=== PATIENT | male | born 2000 | race African-American/Black ===

== ENCOUNTER 2019-06-23 14:38 | Emergency (ER) | payer OTHER ==
[~2019-06-23] VITALS: Ht 167.6 cm; Wt 65.5 kg
[2019-06-23 14:39] VITALS: BP 153/88
[2019-06-23 16:39] LABS: CHLAMYDIA DNA AMPLIFICATION NEGATIVE (NEGATIVE); GC DNA AMPLIFICATION NEGATIVE (NEGATIVE)
[2019-06-23] MEDS ORDERED: AZIT1POW4 PO (18:16)
== END 2019-06-23 15:33 | disposition home or self-care (01) ==
LOC: M ED 14:38
DX: Z11.3 Encounter for screening for infections with a predominantly sexual mode of transmission (principal)

== ENCOUNTER 2019-07-23 19:44 | Emergency (ER) | payer OTHER ==
[~2019-07-23] VITALS: Ht 175.3 cm; Wt 65.9 kg
[~2019-07-23 19:44] MED LIST: AZIT1POW4 PO
[2019-07-23] MEDS ORDERED: NS 1,000 ML IV ONE (20:00)
[2019-07-23 20:27] LABS: BASO # 0.1 10^3/uL (0.0-0.2); BASO % 1.2 % (0.0-1.0); EOS # 0.1 10^3/uL (0.0-0.5); EOS % 1.4 % (0.0-3.0); HEMATOCRIT 48.9 % (42.0-52.0); HEMOGLOBIN 15.4 g/dl (13.5-17.5); LYMPH # 2.3 10^3/uL (1.5-5.0); LYMPH % 34.6 % (24.0-44.0); MEAN CORPUSCULAR HEMOGLOBIN 27.5 pg (27.0-33.0); MEAN CORPUSCULAR HGB CONC 31.5 g/dl (32.0-36.5); MEAN CORPUSCULAR VOLUME 87.3 fl (80.0-96.0); MONO # 0.5 10^3/uL (0.0-0.8); MONO % 7.8 % (0.0-5.0); NEUTROPHILS # 3.6 10^3/uL (1.5-8.5); NEUTROPHILS % 54.7 % (36.0-66.0); PLATELET COUNT, AUTOMATED 270 10^3/uL (150-450); WHITE BLOOD COUNT 6.6 10^3/uL (4.0-10.0)
[2019-07-23 21:11] LABS: ACETAMINOPHEN LEVEL < 2.0 UG/ML (10.0-30.0); ALBUMIN 4.2 GM/DL (3.2-5.2); ALT/SGPT 24 U/L (12-78); BILIRUBIN,DIRECT 0.3 MG/DL (0.0-0.2); BILIRUBIN,TOTAL 1.2 MG/DL (0.2-1.0); BLOOD UREA NITROGEN 14 MG/DL (7-18); CARBON DIOXIDE LEVEL 28 MEQ/L (21-32); CHLORIDE LEVEL 104 MEQ/L (98-107); CPK CREATINE PHOSPHOKINASE 766 U/L (39-308); CREATININE FOR GFR 1.09 MG/DL (0.70-1.30); ETHYL ALCOHOL (ETHANOL) < 0.003 % (0.000-0.010); GLUCOSE, FASTING 79 MG/DL (70-100); POTASSIUM SERUM 3.9 MEQ/L (3.5-5.1); SALICYLATE LEVEL < 1.7 MG/DL (5.0-30.0); SODIUM LEVEL 139 MEQ/L (136-145); TOTAL PROTEIN 7.6 GM/DL (6.4-8.2)
[2019-07-24 04:50] LABS: AMPHETAMINES LEVEL URINE NEGATIVE (NEGATIVE); BARBITURATES URINE NEGATIVE (NEGATIVE); BENZODIAZEPINES URINE NEGATIVE (NEGATIVE); CANNABINOIDS URINE NEGATIVE (NEGATIVE); COCAINE METABOLITE URINE NEGATIVE (NEGATIVE); METHADONE URINE NEGATIVE (NEGATIVE); OPIATES URINE NEGATIVE (NEGATIVE); PHENCYCLIDINE URINE NEGATIVE (NEGATIVE)
--- NOTE | 2019-07-24 09:35 | ECGEPIP ---
[facility] - ED Test Date: 2019-07-23 Pat Name: DEVENDRA GAYLE Department: Room: - Gender: Male Leveler: : 2000 Requested By: CAROLE DA SILVA Order Number: [id number] Reading MD: Edgar Miller Measurements Intervals [place] Rate: 76 P: 72 [place]: 146 QRS: 76 QRSD: 89 T: 43 QT: 365 QTc: 411 Interpretive Statements SINUS RHYTHM BENIGN EARLY REPOLARIZATION NO PRIORS FOR COMPARISON Electronically Signed on 07-24-2019 7:46:13 EDT by Edgar Miller
[2019-07-24] MEDS ORDERED: METAL LOCK LOOP XX ONE (18:37)
[2019-07-24 23:03] VITALS: BP 131/69
== END 2019-07-24 23:10 ==
LOC: M ED 19:44
DX: F32.9 Major depressive disorder, single episode, unspecified (principal); T43.202A Poisoning by unspecified antidepressants, intentional self-harm, initial encounter; Y92.9 Unspecified place or not applicable; Y93.9 Activity, unspecified
CPT/HCPCS: 36415; 80048; 80076; 80307; 82550; 84443; 85025; 93005; 93041; 94760; 96360; 96361; 99285; G0480

== ENCOUNTER 2019-12-21 10:59 | Inpatient (IN) | payer OTHER ==
[~2019-12-21] VITALS: Ht 167.6 cm; Wt 63.8 kg
[2019-12-21] MEDS ORDERED: HYDR-4570 PO (11:13)
[2019-12-21] MEDS ORDERED: TRAZ-252 PO (11:13)
[2019-12-21] MEDS ORDERED: ARIP1TAB4 PO (11:13)
[2019-12-21] MEDS ORDERED: ESCI20TA PO (11:13)
[2019-12-21 11:50] LABS: HEMATOCRIT 49.4 % (42.0-52.0); HEMOGLOBIN 15.6 g/dl (13.5-17.5); MEAN CORPUSCULAR HEMOGLOBIN 26.9 pg (27.0-33.0); MEAN CORPUSCULAR HGB CONC 31.6 g/dl (32.0-36.5); MEAN CORPUSCULAR VOLUME 85.3 fl (80.0-96.0); PLATELET COUNT, AUTOMATED 303 10^3/uL (150-450); RED BLOOD COUNT 5.79 10^6/uL (4.30-6.10); WHITE BLOOD COUNT 4.2 10^3/uL (4.0-10.0)
[2019-12-21] MEDS ORDERED: ACETAMINOPHEN 500 MG TAB PO ONE (12:00)
[2019-12-21 12:26] LABS: AMPHETAMINES LEVEL URINE NEGATIVE (NEGATIVE); BARBITURATES URINE NEGATIVE (NEGATIVE); BENZODIAZEPINES URINE NEGATIVE (NEGATIVE); CANNABINOIDS URINE POSITIVE (NEGATIVE); COCAINE METABOLITE URINE NEGATIVE (NEGATIVE); METHADONE URINE NEGATIVE (NEGATIVE); OPIATES URINE NEGATIVE (NEGATIVE); PHENCYCLIDINE URINE NEGATIVE (NEGATIVE)
[2019-12-21 12:28] LABS: ACETAMINOPHEN LEVEL < 2.0 UG/ML (10.0-30.0); ALBUMIN 4.5 GM/DL (3.2-5.2); ALT/SGPT 25 U/L (12-78); BILIRUBIN,DIRECT 0.4 MG/DL (0.0-0.2); BILIRUBIN,TOTAL 1.7 MG/DL (0.2-1.0); BLOOD UREA NITROGEN 10 MG/DL (7-18); CALCIUM LEVEL 9.2 MG/DL (8.5-10.1); CARBON DIOXIDE LEVEL 29 MEQ/L (21-32); CHLORIDE LEVEL 105 MEQ/L (98-107); CREATININE FOR GFR 1.09 MG/DL (0.70-1.30); ETHYL ALCOHOL (ETHANOL) < 0.003 % (0.000-0.010); GLOMERULAR FILTRATION RATE > 60.0 (>60); GLUCOSE, FASTING 87 MG/DL (70-100); POTASSIUM SERUM 3.6 MEQ/L (3.5-5.1); SALICYLATE LEVEL < 1.7 MG/DL (5.0-30.0); SODIUM LEVEL 141 MEQ/L (136-145); THYROID STIMULATING HORMONE 0.671 uIU/ML (0.358-3.740); TOTAL PROTEIN 7.6 GM/DL (6.4-8.2)
[2019-12-21] MEDS ORDERED: traZODone 50 MG TAB PO PRN (15:00)
[2019-12-21] MEDS ORDERED: MOM 30ML SUSPENSION UDC PO PRN (15:00)
[2019-12-21] MEDS ORDERED: MAALOX 30 ML SUSP *UDC PO PRN (15:00)
[2019-12-21] MEDS ORDERED: ACETAMINOPHEN TAB 650MG DOSE (2X325MG) PO PRN (15:00)
[2019-12-21] MEDS ORDERED: hydrOXYzine 25 MG TAB PO PRN (15:30)
[2019-12-21 15:53] VITALS: BP 131/73
[2019-12-21] MEDS: ARIPiprazole 2 MG TAB PO SCH (21:49)
[2019-12-22 06:50] VITALS: BP 126/57
[2019-12-22] MEDS ORDERED: INFLUENZA QUADRIVALENT PF VACCINE 0.5ML SYRINGE (90686) IM ONE (09:00)
[2019-12-22] MEDS: ESCITALOPRAM OXALATE 10 MG TAB (LEXAPRO) PO SCH (09:57)
--- NOTE | 2019-12-22 11:08 | MHHPEPDOC ---
General Date Of Admission: Dec 21, 2019 Legal Status: 9.39 Chief Complaint "I'm having thoughts of suicide." History of Present Illness HISTORY OF THE PRESENT ILLNESS: Patient is a 19 -year-old , AD, male, with a history of depression who brought o ED after seen as a walk-in at endorsing depressed mood and SI with thoughts of overdosing due to work stressors and relationship stressors. Pt stated he's current getting out of the 02/13/2020 and over the last week work has been very stressful causing him to feel more depressed with fleeting SI. He also endorsed relationship stress as his girlfriend lines in [place]. 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 Psychiatric Review of Systems Depression (2 or more weeks): depressed mood, difficulty concentrating, suicidal thoughts Laxmi (4 or more days of): denies Psychosis: denies PTSD: denies Anxiety: situational anxiety, stressor related anxiety Past Psychiatric History Previous Psychiatric Diagnosis: depression Previous Psychiatric Admissions: 2 previous due to SA via OD Suicide Attempts: 2 previous via OD Psychiatric Follow-up: [facility] Psychiatric medications: vistaril, trazodone, lexapro, abilify Past Medical History Medical Problems healthy adult Head Injury: No Seizures: No Hospitalizations: No Surgeries: No Family Medical/Psychiatric HX Medical Problems noncontributory Psychiatric Disorders: No Addiction: No Suicide Attemps/Completions: No Addiction History nicotine, other (utox pos cannabis) Social History Childhood: born and raised in [place] by his mother mostly, good childhood Abuse/Trauma:denies Current Living Situation: [employer]. 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 Marital: single, never , no kids, has a girlfriend in [place] Mental Status Examination General Appearance: well groomed, appears stated age, hospital scubs/clothing Build: average Demeanor: average Eye Contact: average Activity: average Behavior: cooperative Speech: clear, spontaneous, reg/rate,rhythm,volume Mood: euthymic Mood "fine" Affect: full, appropriate, congruent Thought Process: logical/linear, depressed, intact Thought Content (Delusions): none reported, denies SI, HI, AVH Thought Content (Other): none reported Thought Content (Aggressive): none reported Perception (Hallucinations): none reported Perception (Other): none reported Cognition (Impairment of): none reported Cognition(Intelligence Est.): average Oriented: Awake, Alert, Oriented times three Insight: fair Judgment: Fair Psychosis: Denies Diagnoses Major depressive d/o recurrent moderate w/o psychosis cannabis use d/o A-FIB/CHADSVASC A-FIB History Current/History of A-Fib/PAF?: No Assessment Pt seen and states he's here due to having thoughts of suicide yesterday that are gone today. Pt states he was feeling depressed due to stress with work and having appts regarding getting out and having to go to the field. States his anxiety due to his current stressors making him having thoughts of suicide and feel panicked. States he feels "fine" today. States he just needs "someone to talk to" as does not feel like his outpatient therapy is very helpful. Recommended pt ask his therapist to work on CBT with him and told him what it is. States his meds are beneficial except for his vistail as states he needs 2 25mg tabs to aid his anxiety. Denies SI/HI, hallucinations, delusions. Feels safe here. Initial Treatment Plan 1. Patient was admitted on a 9.39 status. 2. Complete history was obtained. 3. With patients permission, family will be contacted and database will be expanded. 4. Patients medication regimen will be reviewed and changed accordingly. 5. Patient will be provided with protected environment. 6. Patient will be treated with individual, group, and milieu therapies. 7. Patient will receive supportive psych-education. 8. Discharge planning will commence immediately. 9. Outpatient follow-up treatment will be strongly recommended. 10. The initial treatment plan will focus initially on: * Depression. * Risk for suicide. 11. restart lexapro 20mg daily, abilify 2mg daily, increase vistaril to 50mg tid prn anxiety, trazodone 150mg qhs ESTIMATED LENGTH OF STAY: 3-5 DAYS. TIME SPENT COUNSELING AND COORDINATING INITIAL CARE: 60 minutes. Vital Signs Vital Signs Date Time Temp Pulse Resp B/P (MAP) Pulse Ox O2 Delivery O2 Flow Rate FiO2 12/22/19 06:50 98.1 60 14 126/57 (80) 12/21/19 15:53 Room Air 12/21/19 15:34 98 Laboratory Data 24H Labs Laboratory Tests 2 12/21/19 11:37: Nucleated Red Blood Cells % (auto) 0.0, Anion Gap 7L, Glomerular Filtration Rate > 60.0, Calcium Level 9.2, Total Bilirubin 1.7H, Direct Bilirubin 0.4H, Aspartate Amino Transf (AST/SGOT) 15, Alanine Aminotransferase (ALT/SGPT) 25, Alkaline Phosphatase 65, Total Protein 7.6, Albumin 4.5, Albumin/Globulin Ratio 1.45, Thyroid Stimulating Hormone (TSH) 0.671, Salicylates Level < 1.7L, Urine Opiates Screen NEGATIVE, Urine Methadone Screen NEGATIVE, Acetaminophen Level < 2.0L, Urine Barbiturates Screen NEGATIVE, Urine Phencyclidine Screen NEGATIVE, Urine Amphetamines Screen NEGATIVE, Urine Benzodiazepines Screen NEGATIVE, Urine Cocaine Metabolite Screen NEGATIVE, Urine Cannabinoids Screen POSITIVEH, Ethyl Alcohol Level < 0.003 CBC/BMP Laboratory Tests 12/21/19 11:37 Medications Scheduled Aripiprazole (Aripiprazole) 2 Mg Tablet, 2 MG PO QHS, (Reported) Escitalopram Oxalate (Escitalopram Oxalate) 20 Mg Tablet, 20 MG PO DAILY, (Reported) Trazodone HCl (Trazodone HCl) 50 Mg Tablet, 150 MG PO QHS, (Reported) Scheduled PRN Hydroxyzine HCl (Hydroxyzine HCl) 25 Mg Tablet, 25 MG PO BID PRN for ANXIETY/AGITATION, (Reported) Allergies Uncoded Allergies: g6pd deficiency (Adverse Reaction, Unknown, 12/21/19) YARON DEVLIN DO Dec 22, 2019 11:08
[2019-12-22 17:45] VITALS: BP 128/78
--- NOTE | 2019-12-22 19:06 | HPEPDOC ---
[facility] Medical History & Physical Date of Admission Dec 22, 2019 Date of Service: Dec 22, 2019 Attending Physician: LINDEN LINDSEY MD History and Physical CHIEF COMPLAINT: Suicidal ideation HISTORY OF PRESENT ILLNESS: 19-year-old male with past medical history of anxiety and depression is admitted to inpatient at the hospital for suicidal ideation. Patient has attempted suicide twice in the past by overdosing. Patient has had a lot of stress recently and he was having suicidal thoughts, which is why came to the hospital. He has no medical complaints or history. He denies any short of breath, chest pain, nausea, vomiting, abdominal pain or diarrhea. 10 point review of system is negative except for above PAST MEDICAL HISTORY: 1. Anxiety and depression PAST SURGICAL HISTORY: 1. None. SOCIAL HISTORY: Smokes 5-6 cigarettes per day. Denies alcohol use. Smokes marijuana FAMILY HISTORY: Negative for heart disease or malignancy ALLERGIES: Please see below. HOME MEDICATIONS: Please see below. PHYSICAL EXAMINATION: VITAL SIGNS: Please see below. GENERAL: No distress HEENT: Normocephalic, atraumatic, moist mucous membranes NECK: Supple CARDIOVASCULAR EXAMINATION: S1, S2, no murmurs RESPIRATORY EXAMINATION: Clear to auscultation, no wheezing ABDOMINAL EXAMINATION: Soft, nontender, nondistended, positive bowel sounds EXTREMITIES: Range of motion intact SKIN: No rash NEUROLOGICAL EXAMINATION: Alert and oriented 3, no focal deficits PSYCHIATRIC EXAMINATION: Calm and cooperative LABORATORY DATA: See below. MICROBIOLOGY: Please see below. ASSESSMENT: 19-year-old male with past medical history of anxiety, depression, admitted to inpatient mental health for suicidal ideation. PLAN: 1. Suicidal ideation. Management as per primary team Patient is on medical complicity sign, please reconsult as needed. Vital Signs Vital Signs Date Time Temp Pulse Resp B/P (MAP) Pulse Ox O2 Delivery O2 Flow Rate FiO2 12/22/19 17:45 98.4 60 16 128/78 (95) 99 Room Air Home Medications Scheduled Aripiprazole (Aripiprazole) 2 Mg Tablet, 2 MG PO QHS Escitalopram Oxalate (Escitalopram Oxalate) 20 Mg Tablet, 20 MG PO DAILY Trazodone HCl (Trazodone HCl) 50 Mg Tablet, 150 MG PO QHS Scheduled PRN Hydroxyzine HCl (Hydroxyzine HCl) 25 Mg Tablet, 25 MG PO BID PRN for ANXIETY/AG ITATION Allergies Uncoded Allergies: g6pd deficiency (Adverse Reaction, Unknown, 3/13/20) A-FIB/CHADSVASC A-FIB History Current/History of A-Fib/PAF?: No LINDEN LINDSEY MD Dec 22, 2019 19:06
[2019-12-22] MEDS: traZODone 50 MG TAB PO PRN (21:19)
[2019-12-22] MEDS: ARIPiprazole 2 MG TAB PO SCH (21:19)
[2019-12-23 06:21] VITALS: BP 128/63
[2019-12-23] MEDS: hydrOXYzine 50 MG TAB PO PRN (09:01)
[2019-12-23] MEDS: ESCITALOPRAM OXALATE 10 MG TAB (LEXAPRO) PO SCH (09:02)
--- NOTE | 2019-12-23 09:27 | MHIPNPDOC ---
[facility] Progress Note Progress Note DATE OF SERVICE: 12/23/19 HISTORY: Patient is a 19 -year-old , AD, male, with a history of depression who brought o ED after seen as a walk-in at [facility] endorsing depressed mood and SI with thoughts of overdosing due to work stressors and relationship stressors. Pt stated he's current getting out of the 02/13/2020 and over the last week work has been very stressful causing him to feel more depressed with fleeting SI. He also endorsed relationship stress as his girlfriend lines in [place]. 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 Pt seen and states he's here due to having thoughts of suicide yesterday that are gone today. Pt states he was feeling depressed due to stress with work and having appts regarding getting out and having to go to the field. States his anxiety due to his current stressors making him having thoughts of suicide and feel panicked. States he feels "fine" today. States he just needs "someone to talk to" as does not feel like his outpatient therapy is very helpful. Recommended pt ask his therapist to work on CBT with him and told him what it is. States his meds are beneficial except for his vistail as states he needs 2 25mg tabs to aid his anxiety. Denies SI/HI, hallucinations, delusions. Feels safe here. VITAL SIGNS: See below. NEW TEST RESULTS: See below. CURRENT MEDICATIONS: See below. MENTAL STATUS EXAMINATION: General Appearance: well groomed, appears stated age, hospital scrubs/clothing Build: average Demeanor: average Eye Contact: average Activity: average Behavior: cooperative Speech: clear, spontaneous, reg/rate,rhythm,volume Mood: dysthymic, flat Mood "alright" Affect: flat, depressed Thought Process: logical/linear, depressed, intact Thought Content (Delusions): none reported, denies SI, HI, AVH Thought Content (Other): none reported Thought Content (Aggressive): none reported Perception (Hallucinations): none reported Perception (Other): none reported Cognition (Impairment of): none reported Cognition(Intelligence Est.): average Oriented: Awake, Alert, Oriented times three Insight: fair Judgment: Fair Psychosis: Denies DIAGNOSES: Major depressive d/o recurrent moderate w/o psychosis cannabis use d/o ASSESSMENT::Pt seen in day room completing his breakfast stating he feels "alright," but still depressed. Pt is asking if he can see a provider off [place] as doesn't think his [facility] is helpful at all due to appearing as they don't care and falling asleep during therapy session. States he slept well last night. Feels he is tolerating his medications and they're beneficial. He is attending groups and finding them helpful. He denies SI/HI, hallucinations, delusions. Pt feels safe here. MANAGEMENT PLAN: continue plan. lexapro 20mg daily abilify 2mg daily vistaril to 50mg q6hr prn anxiety trazodone 150mg qhs TIME SPENT: 30 minutes. Vital Signs Vital Signs Date Time Temp Pulse Resp B/P (MAP) Pulse Ox O2 Delivery O2 Flow Rate FiO2 12/23/19 06:21 98.1 78 14 128/63 (84) 12/22/19 17:45 99 Room Air Current Medications Current Medications Medications (Trade) Dose Ordered Sig/Ita Route PRN Reason Start Time Stop Time Status Last Admin Dose Admin Acetaminophen (Tylenol Tab) 650 mg Q6HP PRN PO HEADACHE or DISCOMFORT 12/21/19 15:00 Al Hydrox/Mg Hydrox/Simethicone (Mylanta) 30 ml Q4HP PRN PO HEARTBURN/INDIGESTION 12/21/19 15:00 Aripiprazole (AbiLIFY) 2 mg QHS PO 12/21/19 21:00 12/22/19 21:19 Escitalopram Oxalate (Lexapro) 20 mg DAILY PO 12/22/19 09:00 12/23/19 09:02 Home Med (Med Rec Complete!) ASDIRECTED XX 12/21/19 15:00 12/21/19 15:01 DC Hydroxyzine HCl (Atarax) 25 mg Q4HP PRN PO ANXIETY/AGITATION 12/21/19 15:30 12/22/19 11:09 DC 12/22/19 09:57 Hydroxyzine HCl (Atarax) 50 mg Q6HP PRN PO ANXIETY/AGITATION 12/22/19 11:15 12/23/19 09:01 Magnesium Hydroxide (Milk Of Magnesia) 30 ml DAILYPRN PRN PO CONSTIPATION 12/21/19 15:00 Trazodone HCl (Desyrel) 50 mg QHSP PRN PO INSOMNIA 12/21/19 15:00 12/22/19 11:09 DC Trazodone HCl (Desyrel) 150 mg QHSP PRN PO INSOMNIA 12/22/19 11:15 12/22/19 21:19 Allergies Uncoded Allergies: g6pd deficiency (Adverse Reaction, Unknown, 12/21/19) YARON DEVLIN DO Dec 23, 2019 9:27 am
[2019-12-23 15:00] VITALS: BP 120/58
[2019-12-23] MEDS: traZODone 50 MG TAB PO PRN (20:58)
[2019-12-23] MEDS: ARIPiprazole 2 MG TAB PO SCH (20:58)
[2019-12-24 06:09] VITALS: BP 125/57
[2019-12-24] MEDS: ESCITALOPRAM OXALATE 10 MG TAB (LEXAPRO) PO SCH (08:39)
--- NOTE | 2019-12-24 10:57 | MHIPNPDOC ---
[facility] Progress Note Progress Note DATE OF SERVICE: 12/24/19 HISTORY: Patient is a 19 -year-old , AD, male, with a history of depression who brought o ED after seen as a walk-in at [facility] endorsing depres sed mood and SI with thoughts of overdosing due to work stressors and relationship stressors. Pt stated he's current getting out of the 02/13/2020 and over the last week work has been very stressful causing him to feel more depressed with fleeting SI. He also endorsed relationship stress as his girlfriend lines in [place]. 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 Pt seen and states he's here due to having thoughts of suicide yesterday that are gone today. Pt states he was feeling depressed due to stress with work and having appts regarding getting out and having to go to the field. States his anxiety due to his current stressors making him having thoughts of suicide and feel panicked. States he feels "fine" today. States he just needs "someone to talk to" as does not feel like his outpatient therapy is very helpful. Recommended pt ask his therapist to work on CBT with him and told him what it is. States his meds are beneficial except for his vistail as states he needs 2 25mg tabs to aid his anxiety. Denies SI/HI, hallucinations, delusions. Feels safe here. VITAL SIGNS: See below. NEW TEST RESULTS: See below. CURRENT MEDICATIONS: See below. MENTAL STATUS EXAMINATION: General Appearance: well groomed, appears stated age, hospital scrubs/clothing Build: average Demeanor: average Eye Contact: average Activity: average Behavior: cooperative Speech: clear, spontaneous, reg/rate,rhythm,volume Mood: euthymic, more full Mood "ok" Affect: euthymic, congruent Thought Process: logical/linear, less depressed, intact Thought Content (Delusions): none reported, denies SI, HI, AVH Thought Content (Other): none reported Thought Content (Aggressive): none reported Perception (Hallucinations): none reported Perception (Other): none reported Cognition (Impairment of): none reported Cognition(Intelligence Est.): average Oriented: Awake, Alert, Oriented times three Insight: fair Judgment: Fair Psychosis: Denies DIAGNOSES: Major depressive d/o recurrent moderate w/o psychosis cannabis use d/o ASSESSMENT::Pt seen in his room stating he feels "ok" today and he appears more euthymic with a full range. He denies SI/HI. States he slept well last night. Feels he is tolerating his medications and they're beneficial. He is attending groups and finding them helpful. Hopeful to go home with his Ricarda tomorrow. He denies SI/HI, hallucinations, delusions. Pt feels safe here. MANAGEMENT PLAN: continue plan. lexapro 20mg daily abilify 2mg daily vistaril to 50mg q6hr prn anxiety trazodone 150mg qhs TIME SPENT: 30 minutes. Vital Signs Vital Signs Date Time Temp Pulse Resp B/P (MAP) Pulse Ox O2 Delivery O2 Flow Rate FiO2 12/24/19 06:09 97.9 54 12 125/57 (79) 12/23/19 15:00 97 Room Air Current Medications Current Medications Medications (Trade) Dose Ordered Sig/Ita Route PRN Reason Start Time Stop Time Status Last Admin Dose Admin Acetaminophen (Tylenol Tab) 650 mg Q6HP PRN PO HEADACHE or DISCOMFORT 12/21/19 15:00 Al Hydrox/Mg Hydrox/Simethicone (Mylanta) 30 ml Q4HP PRN PO HEARTBURN/INDIGESTION 12/21/19 15:00 Aripiprazole (AbiLIFY) 2 mg QHS PO 12/21/19 21:00 12/23/19 20:58 Escitalopram Oxalate (Lexapro) 20 mg DAILY PO 12/22/19 09:00 12/24/19 08:39 Home Med (Med Rec Complete!) ASDIRECTED XX 12/21/19 15:00 12/21/19 15:01 DC Hydroxyzine HCl (Atarax) 25 mg Q4HP PRN PO ANXIETY/AGITATION 12/21/19 15:30 12/22/19 11:09 DC 12/22/19 09:57 Hydroxyzine HCl (Atarax) 50 mg Q6HP PRN PO ANXIETY/AGITATION 12/22/19 11:15 12/23/19 09:01 Magnesium Hydroxide (Milk Of Magnesia) 30 ml DAILYPRN PRN PO CONSTIPATION 12/21/19 15:00 Trazodone HCl (Desyrel) 50 mg QHSP PRN PO INSOMNIA 12/21/19 15:00 12/22/19 11:09 DC Trazodone HCl (Desyrel) 150 mg QHSP PRN PO INSOMNIA 12/22/19 11:15 12/23/19 20:58 Allergies Uncoded Allergies: g6pd deficiency (Adverse Reaction, Unknown, 12/21/19) YARON DEVLIN DO Dec 24, 2019 10:57 am
[2019-12-24 16:00] VITALS: BP 145/65
[2019-12-24] MEDS: ARIPiprazole 2 MG TAB PO SCH (20:49)
[2019-12-24] MEDS: traZODone 50 MG TAB PO PRN (22:53)
[2019-12-25 06:29] VITALS: BP 115/53
[2019-12-25] MEDS: hydrOXYzine 50 MG TAB PO PRN (08:38)
[2019-12-25] MEDS: ESCITALOPRAM OXALATE 10 MG TAB (LEXAPRO) PO SCH (08:38)
[2019-12-25] MEDS ORDERED: TRAZ-252 PO (08:56)
[2019-12-25] MEDS ORDERED: ARIP1TAB4 PO (08:56)
[2019-12-25] MEDS ORDERED: HYDR50TA70 PO (08:56)
[2019-12-25] MEDS ORDERED: ESCI20TA PO (08:56)
--- NOTE | 2019-12-25 08:57 | MHDSPDOC ---
[facility] Discharge Summary Discharge Summary DATE OF ADMISSION: Dec 21, 2019 at 2:49 pm DATE OF DISCHARGE: dec 25, 2019 DISCHARGE DIAGNOSES: Major depressive d/o recurrent moderate w/o psychosis cannabis use d/o REASON FOR ADMISSION: Patient is a 19 -year-old , AD, male, with a history of depression who brought o ED after seen as a walk-in at [facility] endorsing depressed mood and SI with thoughts of overdosing due to work stressors and relationship stressors. Pt stated he's current getting out of the 02/13/2020 and over the last week work has been very stressful causing him to feel more depressed with fleeting SI. He also endorsed relationship stress as his girlfriend lines in [place]. 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 Pt seen and states he's here due to having thoughts of suicide yesterday that are gone today. Pt states he was feeling depressed due to stress with work and having appts regarding getting out and having to go to the field. States his anxiety due to his current stressors making him having thoughts of suicide and feel panicked. States he feels "fine" today. States he just needs "someone to talk to" as does not feel like his outpatient therapy is very helpful. Recommended pt ask his therapist to work on CBT with him and told him what it is. States his meds are beneficial except for his vistail as states he needs 2 25mg tabs to aid his anxiety. Denies SI/HI, hallucinations, delusions. Feels safe here. CONSULTANTS INVOLVED: none TREATMENT AND PROGRESS ON THE UNIT : Pt was admitted to [facility], seen for psychiatric assessment and restarted on his outpatient medication lexapro 20mg daily for mood and abilify 2mg daily for antidepressant augmentation. He was restarted on his outpatient [id number] qhs for insomnia. He was provided vistaril 50mg q6hr prn anxiety. Pt found his medications beneficial and tolerated them well. He attended groups daily during his stay. His symptoms improved with treatment. On day of discharge he denied depression, anxiety, insomnia, SI/HI, hallucinations, delusions. He was discharged home after Ricarda meeting with follow-up at [facility]. He felt safe for discharge. DISCHARGE ASSESSMENT: Pt seen in his room stating he feels "good" today and is looking forward to going home with his Ricarda today. He appears euthymic with a full range. He denies SI/HI. States he slept well last night. Feels he is tolerating his medications and they're beneficial. He is attending groups and finding them helpful. He denies depression, anxiety, insomnia, SI/HI, hallucinations, delusions. Pt feels safe to go home with his Ricarda today. MENTAL STATUS EXAMINATION ON DISCHARGE: General Appearance: well groomed, appears stated age, hospital scrubs/clothing Build: average Demeanor: average Eye Contact: average Activity: average Behavior: cooperative Speech: clear, spontaneous, reg/rate,rhythm,volume Mood: euthymic, full range Mood "good" Affect: euthymic, congruent Thought Process: logical/linear, less depressed, intact Thought Content (Delusions): none reported, denies SI, HI, AVH Thought Content (Other): none reported Thought Content (Aggressive): none reported Perception (Hallucinations): none reported Perception (Other): none reported Cognition (Impairment of): none reported Cognition(Intelligence Est.): average Oriented: Awake, Alert, Oriented times three Insight: good Judgment: good Psychosis: Denies MEDICATIONS ON DISCHARGE: lexapro 20mg daily abilify 2mg daily vistaril to 50mg q6hr prn anxiety trazodone 150mg qhs PLAN/FOLLOWUP ARRANGEMENTS: D/c home with his Ricarda with follow-up at [facility]. The amount of time spent in the coordination of care for this patient was ap proximately 30 minutes. Vital Signs/I&Os Vital Signs Date Time Temp Pulse Resp B/P (MAP) Pulse Ox O2 Delivery O2 Flow Rate FiO2 12/25/19 06:29 98.2 55 18 115/53 (73) 12/23/19 15:00 97 Room Air Medications Scheduled Aripiprazole (Aripiprazole) 2 Mg Tablet, 2 MG PO QHS, (Reported) Escitalopram Oxalate (Escitalopram Oxalate) 20 Mg Tablet, 20 MG PO DAILY, (Reported) Trazodone HCl (Trazodone HCl) 50 Mg Tablet, 150 MG PO QHS, (Reported) Scheduled PRN Hydroxyzine HCl (Hydroxyzine HCl) 25 Mg Tablet, 25 MG PO BID PRN for ANXIETY/AGITATION, (Reported) Allergies Uncoded Allergies: g6pd deficiency (Adverse Reaction, Unknown, 12/21/19) YARON DEVLIN DO Dec 25, 2019 8:57 am
== END 2019-12-25 11:55 | disposition home or self-care (01) | DRG 885 ==
LOC: M ED 10:59 → M ED INP 14:49 → M PSY 15:38
PROVIDERS: ADMIT Psychiatry & Neurology Psychiatry; ATTEND Psychiatry & Neurology Psychiatry
DX: F33.1 Major depressive disorder, recurrent, moderate (principal); Z56.6 Other physical and mental strain related to work; Z63.0 Problems in relationship with spouse or partner; F12.10 Cannabis abuse, uncomplicated; Z79.899 Other long term (current) drug therapy; Z88.8 Allergy status to other drugs, medicaments and biological substances; F17.210 Nicotine dependence, cigarettes, uncomplicated; F41.9 Anxiety disorder, unspecified